=== PATIENT | male | born 1945 | race Caucasian/White ===

== ENCOUNTER 2024-06-24 00:29 | Day surgery (SDC) | payer MEDICARE, SELFPAY ==
[2024-05-20 10:46] VITALS: BMI 26.6
--- NOTE | 2024-06-12 10:34 | SUR.PREOP ---
Pt called this am to cancel his procedure on 06/13 due to provider availability. Pt rescheduled to 06/24 at 1130.
--- NOTE | 2024-06-16 11:46 | PC.NURSE ---
PT CALLED FOR PREOP ADMISSION TESTING, PT DENIES ANY NEW OR DIFFERENT MEDICAL HISTORY THAN WHAT WAS PROVIDER ON LAST CALL, PT UPDATED ON NEW PROCEDURE DATE AND TIME, STATES UNDERSTANDING, AND DENIES ANY QUESTIONS OR CONCERNS.
[2024-06-24] VITALS (7 sets, daily range): BP systolic 74–169; BP diastolic 46–88; PULSE 85–106; RESP 16–22; TEMP 36.3; O2SAT 95–100; BMI 26.2
[2024-06-24] MEDS: LACTATED RINGERS 1,000 ML 150 ML IV CONT (10:22)
--- NOTE | 2024-06-24 10:30 | PM.IMHP ---
H&P: HPI History of Present Illness Date/Time: 06/24/24 10:30 Chief Complaint: positive Cologuard Narrative: the patient has recently found to be Cologuard positive. He has had 2 previous negative Cologuard tests. The patient is asymptomatic from a GI standpoint and there is no family history colorectal cancer. Review of Systems Review of Systems: All systems reviewed & are unremarkable except as noted in HPI and below [facility] Social History Social History Spiritual care concerns: No Meds Home Medications and Allergies Home Medications ?Medication ?Instructions ?Recorded ?Confirmed ?Type tamsulosin 0.4 mg capsule 0.4 mg PO DAILY 05/20/24 06/24/24 History Allergies Allergy/AdvReac Type Severity Reaction Status Date / Time No Known Allergies Allergy Verified 06/24/24 10:13 Vital Signs Vital Signs - 24 hr 06/24/24 10:14 Temperature 97.3 F L Pulse Rate 104 H Respiratory Rate 16 Blood Pressure 169/88 H Pulse Oximetry 100 Oxygen Delivery Room Air Exam Const: General: cooperative and healthy appearing Resp: Effort & Inspection: normal respiratory effort and able to speak in complete sentences Auscultation: clear to auscultation bilaterally Cardio: Rate: regular rate Rhythm: regular rhythm GI: Inspection: normal to inspection GI Palp: No No hepatosplenomegaly present Auscultation: normal bowel sounds Rectal Exam: deferred Skin: General skin exam: normal color Psych: Appearance: grossly normal Mental Status: mental status grossly normal Assessment and Plan Assessment and plan (1) Positive colorectal cancer screening using Cologuard test: Code(s): R19.5 - Other fecal abnormalities Status: Acute Assessment and Plan: The patient is deemed a good candidate for the procedure. Consent signed. Will proceed.
[2024-06-24] MEDS: MIDAZOLAM HCL (*CRX) 2 MG/2 ML VIAL IV PUSH (10:44)
--- NOTE | 2024-06-24 10:45 | P.PNAN_ITS ---
Anes - Initial Pre Proc Eval Procedure: Operation Date: 06/24/24 11:30 Proposed Procedures p Colonoscopy - Jacoby Drake MD Date/Time: 06/24/24 10:45 Surgeon: Jacoby Drake MD Pre Op Diagnosis: Fecal Abnormalities Patient Data Age: 79 Gender: M Height: 1.75 m Weight: 80.6 kg Last Vital Signs Temp 36.3 C L 06/24/24 10:14 Pulse 104 H 06/24/24 10:14 Resp 16 06/24/24 10:14 BP 169/88 H 06/24/24 10:14 Pulse Ox 100 06/24/24 10:14 O2 Del Method Room Air 06/24/24 10:14 Allergies Allergy/AdvReac Type Severity Reaction Status Date / Time No Known Allergies Allergy Verified 06/24/24 10:13 Home Medications ?Medication ?Instructions ?Recorded ?Confirmed ?Type tamsulosin 0.4 mg capsule 0.4 mg PO DAILY 05/20/24 06/24/24 History Patient hx anesthesia problems: none Family hx anesthesia problems: none Results Review: All pre-operative results and documents have been reviewed as part of the pre- operative evaluation. [facility] Past Medical History Medical History (Updated 06/24/24 @ 10:45 by Brad Sutherland MD) Overweight Surgical History Surgical History H/O colonoscopy Social History Social History Spiritual care concerns: No Anes - Eval Final PreProcedure Day of Procedure 06/24/24 10:45 Patient weight: overweight Heart: regular rate and rhythm Lungs: clear to auscultation Airway: Mallampati scale class II Neurological: alert and oriented Last oral intake: >/= 8 hours ASA classification: II Emergent: no Anesthetic plan: proceed Anesthesia type and monitoring: general GIVS and standard monitoring Results Review: All pre-operative results and documents have been reviewed as part of the pre- operative evaluation. Informed Consent: The patient's anesthetic plan and its attendant risks and benefits were discussed with the patient/family/POA. Questions were solicited and answers provided to the satisfaction of the patient/family/POA.
--- OUTSIDE RECORDS SUMMARY | 2024-06-30 04:53 | XMS_ITS | Data Portability ---
Author Organization [facility] [employer], Main Office Address [address] [place] [id number] Care Team Providers Care Mannequin Mounter Name Role Phone KODY BRUNNER Primary Care Provider [phone] Assessment Encounter Date Assessment Date Assessment LastModified by Organization Details LastModified Time 09/08/2022 09/08/2022 Medicare annual Wellness concluded dyslipidemia discussed BPH discussed blood work ordered follow-up 6 months low-fat diet [email or web address] Not available 09/08/2022 21:01:49 03/09/2023 03/09/2023 Continue current therapy flu shot follow-up 6 months Not available 03/10/2023 14:18:26 Plan of Treatment Reminders Order Date Submit Date Provider Last Modified By Organization Details Last Modified Time Details Appointments None recorded . Lab CBC w/ auto diff 023 09/09/[address] (Lab), [address] [place], [address], 3 15:24:50 lipid panel, serum 023 09/09/[address] (Lab), [address] [place], [address], 3 15:24:50 CMP, serum or plasma 023 09/09/[address] (Lab), [address] [place], [address], 3 15:24:50 lipid panel, serum 023 03/09/20 23 [facility] (Lab), [address] [place], [address], 3 14:59:18 CMP, serum or plasma 023 03/09/20 23 [facility] (Lab), [address] [place], [address], 3 14:59:34 PSA, serum or plasma 023 03/09/[email or web address] [place] [address] (Lab), [address] [place], [address], 4 09:38:55 Referral None recorded . Procedures None recorded . Surgeries None recorded . Imaging None recorded . Medication Orders None recorded . Patient TargetsNo targets recorded. Patient Instructions Encounter Date Encounter Id Patient Instructions Last Modified By Organization Details Last Modified Time 09/08/2022 [id number] dementia rating scale-2* Not available 09/08/2022 15:24:50 depression screening* [email or web address] Not available 09/08/2022 15:24:50 alcohol misuse* [email or web address] Not available 09/08/2022 15:24:50 multi-dimensiona l health assessment questionnaire* [email or web address] Not available 09/08/2022 15:24:50 Personalized a [facility] Plan and Screening Recommendations Advance Directives - Do you have one? You have indicated that you are capable of preparing your advance care directive Advance Directives - Do we have your advance directive on file in your health record? Primary Prevention/Interven tion (prevents or decreases the chance of common diseases from occurring) Smoking Risk: Non Smoker Alcohol Misuse Screening: Negative Weight: Appropriate Physical activity: Appropriate physical activity Nutrition: Good Fall Risk (screened today): Low Vaccines Pneumococcal: Ordered Recommended today Recommended today, but you have declined No further needed Influenza: Chronic Disease Risks Stroke: Low Risk Intermediate Risk Heart Attack: Low risk Intermediate Risk Clogging of the Arteries: Low risk Intermediate Risk Diabetes: Low Risk I have no recommendations Secondary Prevention/Interven tion (detects treatable diseases before they may cause symptoms, disability, or ) Prostate Cancer Screening: Colon Cancer Screening: Colonoscopy Fecal Occult Blood Cologuard (DNA stool test) Date Screening Last Performed: Cologuard negative 11/19/20 Eye Disease Screening: Ordered Recommended today Dementia Risk: Low I have no recommendations Depression Screening: Negative Not available 09/08/2022 11:42:34 Reason for Referral None Reported. Results Created Date Observation Date Name Description Value Unit Range Abnormal Flag Note LastModifiedBy Organization Detail LastModifiedTime 11/22/19 22 11/21/2021 PSA SCREE N PSA medicare screen 2.89 NG/mL 0.00-4 .00 Not Available [facility] (Lab) [address] [place], [address], 11/21/2021 13:28:23 11/22/19 22 11/21/2021 LIPID PANEL cholesterol 191 mg/dL 140-19 9 NIH DEMARUCS NSUS RECOM MENDA TION FOR HARIS STERO L: ADULT CHILD LOW RISK: <200 <170 BORDE RLINE : <200- 239 ----- HIGH RISK: >240 >200 Not Available [facility] (Lab) [address] [place], [address], 11/21/2021 13:14:45 11/22/19 22 11/21/2021 LIPID PANEL triglyceride s 103 mg/dL 0-150 NIH DEMARCUS NSUS REPOR T RECOM MENDA TION FOR TRIGL YCERI REMEDIOS: ADULT CHILD LOW RISK: <150 ----- BODER LINE: 150-1 99 ----- HIGH RISK: >200 ----- Not Available [facility] (Lab) [address] [place], [address], 11/21/2021 13:14:45 11/22/19 22 11/21/2021 LIPID PANEL HDL cholesterol 56 mg/dL 40- Not Available [facility] (Lab) [address] [place], [address], 11/21/2021 13:14:45 11/22/19 22 11/21/2021 LIPID PANEL LDL cholesterol, calculated 114 mg/dL 0-130 NIH DEMARCUS NSUS REPOR T RECOM MENDA TIONS FOR LDL: ADULT CHILD LOW RISK <130 <110 (OPTI MAL LDL) <100 ----- BORDE RLINE : 130-1 59 ----- HIGH RISK: >160 >130 A TRIGL YCERI DE RESUL T >400 INVAL IDATE S THE CALCU LATIO N FOR LDL FRACT IONAT ION - THE LDL RESUL T WILL NOT BE REPOR KULDEEP. Not Available [facility] (Lab) [address] [place], [address], 11/21/2021 13:14:45 11/22/19 22 11/21/2021 COMPR EHENS CHRIS METAB OLIC PANEL sodium 142 mmol/ L 137-14 5 Not Available [facility] (Lab) [address] [place], [address], 11/21/2021 13:14:40 11/22/19 22 11/21/2021 COMPR EHENS CHRIS METAB OLIC PANEL potassium 4.1 mmol/ L 3.5-5. 1 Not Available [facility] (Lab) [address] [place], [address], 11/21/2021 13:14:40 11/22/19 22 11/21/2021 COMPR EHENS CHRIS METAB OLIC PANEL chloride 109 mmol/ L 98-107 high Not Available [facility] (Lab) [address] [place], [address], 11/21/2021 13:14:40 11/22/19 22 11/21/2021 COMPR EHENS CHRIS METAB OLIC PANEL carbon dioxide 23 mmol/ L 22-30 Not Available [facility] (Lab) [address] [place], [address], 11/21/2021 13:14:40 11/22/19 22 11/21/2021 COMPR EHENS CHRIS METAB OLIC PANEL anion gap 14.1 mmol/ L 14-22 Not Available [facility] (Lab) [address] [place], [address], 11/21/2021 13:14:40 11/22/19 22 11/21/2021 COMPR EHENS CHRIS METAB OLIC PANEL glucose 94 mg/dL 70-99 Not Available [facility] (Lab) [address] [place], [address], 11/21/2021 13:14:40 11/22/19 22 11/21/2021 COMPR EHENS CHRIS METAB OLIC PANEL BUN 12 mg/dL 8-19 Not Available [facility] (Lab) [address] [place], [address], 11/21/2021 13:14:40 11/22/19 22 11/21/2021 COMPR EHENS CHRIS METAB OLIC PANEL creatinine 1.44 mg/dL 0.66-1 .25 high Not Available [facility] (Lab) [address] [place], [address], 11/21/2021 13:14:40 11/22/19 22 11/21/2021 COMPR EHENS CHRIS METAB OLIC PANEL GFR 48 Refer ence Range : [place] ge GFR Healt hy Adult : >60 mL/mi n/1.7 3 m2 Chron ic Kidne y Disea se: 15-60 mL/mi n/1.7 3 m2 Kidne y Failu re: <15/m L/min /1.73 m2 www.n iddk. nih.g ov The MDRD study equat ion has not been valid ated in child eliza <18 years of age; pregn ant women ; the elder ly >85 years of age; or in some racia l or ethni c subgr oups, such as Hispa nics. Outsi de the valid ated elisa eters , estim ated GFR is less accur ate, requi ring clini jannie judgm ent on a case- by-ca se basis . Clini jannie inter preta tion for other races and ages must be made by the clini marianna. The MDRD study equat ion has not been valid ated for the evalu ation of serum creat inine relat ed to nutri barbara l statu s or medic ation usage . For perso ns <18 years of age, a pedia tric GFR calcu lator is avail able on the [facility] websi te: [email or web address] :[email or web address] han/kizzy pederson s/kdo qi/gf r_cal culat or Not Available [facility] (Lab) [address] [place], [address], 11/21/2021 13:14:40 11/22/19 22 11/21/2021 COMPR EHENS CHRIS METAB OLIC PANEL alkaline phosphatase 87 U/L 38-126 Not Available [facility] (Lab) [address] [place], [address], 11/21/2021 13:14:40 11/22/19 22 11/21/2021 COMPR EHENS CHRIS METAB OLIC PANEL alanine aminotransfe rase 23 U/L 0-50 Not Available [facility] (Lab) [address] [place], [address], 11/21/2021 13:14:40 11/22/19 22 11/21/2021 COMPR EHENS CHRIS METAB OLIC PANEL aspartate aminotransfe rase 44 U/L 15-46 Not Available [facility] (Lab) [address] [place], [address], 11/21/2021 13:14:40 11/22/19 22 11/21/2021 COMPR EHENS CHRIS METAB OLIC PANEL bilirubin, total 1.30 mg/dL 0.20-1 .30 Not Available [facility] (Lab) [address] [place], [address], 11/21/2021 13:14:40 11/22/19 22 11/21/2021 COMPR EHENS CHRIS METAB OLIC PANEL calcium 9.0 mg/dL 8.4-10 .2 Not Available [facility] (Lab) [address] [place], [address], 11/21/2021 13:14:40 11/22/19 22 11/21/2021 COMPR EHENS CHRIS METAB OLIC PANEL total protein 6.7 g/dL 6.3-8. 2 Not Available [facility] (Lab) [address] [facility] [place], [address], 11/21/2021 13:14:40 11/22/19 22 11/21/2021 COMPR EHENS CHRIS METAB OLIC PANEL albumin 4.1 g/dL 3.0-4. 4 Not Available [facility] (Lab) [address] [place], [address], 11/21/2021 13:14:40 11/22/19 22 11/21/2021 COMPR EHENS CHRIS METAB OLIC PANEL globulin 2.6 g/dL 2.6-4. 2 Not Available [facility] (Lab) [address] [place], [address], 11/21/2021 13:14:40 11/22/19 22 11/21/2021 COMPR EHENS CHRIS METAB OLIC PANEL A/G ratio 1.6 ratio 1.0-2. 0 Not Available [facility] (Lab) [address] [place], [address], 11/21/2021 13:14:40 03/10/20 22 03/10/2022 COMPR EHENS CHRIS METAB OLIC PANEL sodium 138 mmol/ L 137-14 5 Not Available [facility] (Lab) [address] [place], [address], 03/10/2022 15:55:43 03/10/20 22 03/10/2022 COMPR EHENS CHRIS METAB OLIC PANEL potassium 4.3 mmol/ L 3.5-5. 1 Not Available [facility] (Lab) [address] [place], [address], 03/10/2022 15:55:43 03/10/20 22 03/10/2022 COMPR EHENS CHRIS METAB OLIC PANEL chloride 106 mmol/ L 98-107 Not Available [facility] (Lab) [address] [place], [address], 03/10/2022 15:55:43 03/10/20 22 03/10/2022 COMPR EHENS CHRIS METAB OLIC PANEL carbon dioxide 26 mmol/ L 22-30 Not Available [facility] (Lab) [address] [place], [address], 03/10/2022 15:55:43 03/10/20 22 03/10/2022 COMPR EHENS CHRIS METAB OLIC PANEL anion gap 10.3 mmol/ L 14-22 low Not Available [facility] (Lab) [address] [place], [address], 03/10/2022 15:55:43 03/10/20 22 03/10/2022 COMPR EHENS CHRIS METAB OLIC PANEL glucose 95 mg/dL 70-99 Not Available [facility] (Lab) [address] [place], [address], 03/10/2022 15:55:43 03/10/20 22 03/10/2022 COMPR EHENS CHRIS METAB OLIC PANEL BUN 15 mg/dL 8-19 Not Available [facility] (Lab) [address] [place], [address], 03/10/2022 15:55:43 03/10/20 22 03/10/2022 COMPR EHENS CHRIS METAB OLIC PANEL creatinine 1.19 mg/dL 0.66-1 .25 Not Available [facility] (Lab) [address] [place], [address], 03/10/2022 15:55:43 03/10/20 22 03/10/2022 COMPR EHENS CHRIS METAB OLIC PANEL GFR 60 Refer ence Range : [place] ge GFR Healt hy Adult : >60 mL/mi n/1.7 3 m2 Chron ic Kidne y Disea se: 15-60 mL/mi n/1.7 3 m2 Kidne y Failu re: <15/m L/min /1.73 m2 www.n iddk. nih.g ov The MDRD study equat ion has not been valid ated in child eliza <18 years of age; pregn ant women ; the elder ly >85 years of age; or in some racia l or ethni c subgr oups, such as Hispa nics. Outsi de the valid ated elisa eters , estim ated GFR is less accur ate, requi ring clini jannie judgm ent on a case- by-ca se basis . Clini jannie inter preta tion for other races and ages must be made by the clini marianna. The MDRD study equat ion has not been valid ated for the evalu ation of serum creat inine relat ed to nutri barbara l statu s or medic ation usage . For perso ns <18 years of age, a pedia tric GFR calcu lator is avail able on the [facility] websi te: https :[email or web address] lara.rudy rg/pr ofess ional s/kdo qi/gf r_cal culat or Not Available [facility] (Lab) [address] [place], [address], 03/10/2022 15:55:43 03/10/20 22 03/10/2022 COMPR EHENS CHRIS METAB OLIC PANEL alkaline phosphatase 97 U/L 38-126 Not Available [facility] (Lab) [address] [place], [address], 03/10/2022 15:55:43 03/10/20 22 03/10/2022 COMPR EHENS CHRIS METAB OLIC PANEL alanine aminotransfe rase 19 U/L 0-50 Not Available [facility] (Lab) [address] [place], [address], 03/10/2022 15:55:43 03/10/20 22 03/10/2022 COMPR EHENS CHRIS METAB OLIC PANEL aspartate aminotransfe rase 33 U/L 15-46 Not Available [facility] (Lab) [address] [place], [address], 03/10/2022 15:55:43 03/10/2003/10/2022 COMPR EHENS CHRIS METAB OLIC PANEL bilirubin, total 1.00 mg/dL 0.20-1 .30 Not Available [facility] (Lab) [address] [place], [address], 03/10/2022 15:55:43 03/10/20 22 03/10/2022 COMPR EHENS CHRIS METAB OLIC PANEL calcium 9.2 mg/dL 8.4-10 .2 Not Available [facility] (Lab) [address] [place], [address], 03/10/2022 15:55:43 03/10/20 22 03/10/2022 COMPR EHENS CHRIS METAB OLIC PANEL total protein 7.1 g/dL 6.3-8. 2 Not Available [facility] (Lab) [address] [place], [address], 03/10/2022 15:55:43 03/10/20 22 03/10/2022 COMPR EHENS CHRIS METAB OLIC PANEL albumin 4.3 g/dL 3.0-4. 4 Not Available [facility] (Lab) [address] [place], [address], 03/10/2022 15:55:43 03/10/20 22 03/10/2022 COMPR EHENS CHRIS METAB OLIC PANEL globulin 2.8 g/dL 2.6-4. 2 Not Available [facility] (Lab) [address] [place], [address], 03/10/2022 15:55:43 03/10/20 22 03/10/2022 COMPR EHENS CHRIS METAB OLIC PANEL A/G ratio 1.5 ratio 1.0-2. 0 Not Available [facility] (Lab) [address] [place], [address], 03/10/2022 15:55:43 03/10/20 22 03/10/2022 LIPID PANEL cholesterol 189 mg/dL 140-19 9 NIH DEMARCUS NSUS RECOM MENDA TION FOR HARIS STERO L: ADULT CHILD LOW RISK: <200 <170 BORDE RLINE : <200- 239 ----- HIGH RISK: >240 >200 Not Available [facility] (Lab) [address] [place], [address], 03/10/2022 15:55:37 03/10/20 22 03/10/2022 LIPID PANEL triglyceride s 129 mg/dL 0-150 NIH DEMARCUS NSUS REPOR T RECOM MENDA TION FOR TRIGL YCERI REMEDIOS: ADULT CHILD LOW RISK: <150 ----- BODER LINE: 150-1 99 ----- HIGH RISK: >200 ----- Not Available [facility] (Lab) [address] [place], [address], 03/10/2022 15:55:37 03/10/20 22 03/10/2022 LIPID PANEL HDL cholesterol 45 mg/dL 40- Not Available [facility] (Lab) [address] [place], [address], 03/10/2022 15:55:37 03/10/20 22 03/10/2022 LIPID PANEL LDL cholesterol, calculated 118 mg/dL 0-130 NIH DEMARCUS NSUS REPOR T RECOM MENDA TIONS FOR LDL: ADULT CHILD LOW RISK <130 <110 (OPTI MAL LDL) <100 ----- BORDE RLINE : 130-1 59 ----- HIGH RISK: >160 >130 A TRIGL YCERI DE RESUL T >400 INVAL IDATE S THE CALCU LATIO N FOR LDL FRACT IONAT ION - THE LDL RESUL T WILL NOT BE REPOR KULDEEP. Not Available [facility] (Lab) [address] [place], [address], 03/10/2022 15:55:37 03/10/20 22 03/10/2022 CBC/C OMPLE TE BLD COUNT W/DIF F white blood cells 11.1 x10'3 /uL 4.2-10 .8 high Not Available [facility] (Lab) [address] [place], [address], 03/10/2022 14:31:25 03/10/20 22 03/10/2022 CBC/C OMPLE TE BLD COUNT W/DIF F red blood cells 4.52 x10'6 /uL 4.10-5 .80 Not Available [facility] (Lab) [address] [place], [address], 03/10/2022 14:31:25 03/10/20 22 03/10/2022 CBC/C OMPLE TE BLD COUNT W/DIF F hemoglobin 14.1 g/dL 13.2-1 7.0 Not Available [facility] (Lab) [address] [place], [address], 03/10/2022 14:31:25 03/10/20 22 03/10/2022 CBC/C OMPLE TE BLD COUNT W/DIF F hematocrit 42.1 % 39.3-5 0.0 Not Available [facility] (Lab) [address] [place], [address], 03/10/2022 14:31:25 03/10/20 22 03/10/2022 CBC/C OMPLE TE BLD COUNT W/DIF F mean red cell volume 93.1 fL 80.0-9 7.0 Not Available [facility] (Lab) [address] [facility] [place], [address], 03/10/2022 14:31:25 03/10/20 22 03/10/2022 CBC/C OMPLE TE BLD COUNT W/DIF F mean red cell hemoglobin 31.2 pg 27.0-3 3.0 Not Available [facility] (Lab) [address] [place], [address], 03/10/2022 14:31:25 03/10/20 22 03/10/2022 CBC/C OMPLE TE BLD COUNT W/DIF F mean RBC HGB concentratio n 33.5 g/dL 31.0-3 6.0 Not Available [facility] (Lab) [address] [place], [address], 03/10/2022 14:31:25 03/10/20 22 03/10/2022 CBC/C OMPLE TE BLD COUNT W/DIF F red cell distribution width 12.9 % 11.8-1 5.5 Not Available [facility] (Lab) [address] [place], [address], 03/10/2022 14:31:25 03/10/20 22 03/10/2022 CBC/C OMPLE TE BLD COUNT W/DIF F platelets 245 x10'3 /uL 150-40 0 Not Available [facility] (Lab) [address] [place], [address], 03/10/2022 14:31:25 03/10/20 22 03/10/2022 CBC/C OMPLE TE BLD COUNT W/DIF F mean platelet volume 10.5 fL 9.0-12 .4 Not Available [facility] (Lab) [address] [place], [address], 03/10/2022 14:31:25 03/10/20 22 03/10/2022 CBC/C OMPLE TE BLD COUNT W/DIF F neutrophils 79.8 % 39.0-7 2.0 high Not Available [facility] (Lab) [address] [place], [address], 03/10/2022 14:31:25 03/10/20 22 03/10/2022 CBC/C OMPLE TE BLD COUNT W/DIF F lymphocytes 13.8 % 16.0-4 7.0 low Not Available [facility] (Lab) [address] [place], [address], 03/10/2022 14:31:25 03/10/20 22 03/10/2022 CBC/C OMPLE TE BLD COUNT W/DIF F monocytes 4.9 % 5.0-12 .0 low Not Available [facility] (Lab) [address] [place], [address], 03/10/2022 14:31:25 03/10/20 22 03/10/2022 CBC/C OMPLE TE BLD COUNT W/DIF F eosinophils 0.7 % 1.0-7. 0 low Not Available [facility] (Lab) [address] [place], [address], 03/10/2022 14:31:25 03/10/20 22 03/10/2022 CBC/C OMPLE TE BLD COUNT W/DIF F basophils 0.4 % 0.0-2. 0 Not Available [facility] (Lab) [address] [place], [address], 03/10/2022 14:31:25 03/10/20 22 03/10/2022 CBC/C OMPLE TE BLD COUNT W/DIF F immature granulocytes 0.4 % 0.00-0 .50 Not Available [facility] (Lab) [address] [place], [address], 03/10/2022 14:31:25 03/10/20 22 03/10/2022 CBC/C OMPLE TE BLD COUNT W/DIF F neutrophils, absolute count 8.83 x10'3 /uL 1.5-8. 0 high Not Available [facility] (Lab) [address] [place], [address], 03/10/2022 14:31:25 03/10/20 22 03/10/2022 CBC/C OMPLE TE BLD COUNT W/DIF F lymphocytes, absolute count 1.53 x10'3 /uL 1.07-3 .43 Not Available [facility] (Lab) [address] [place], [address], 03/10/2022 14:31:25 03/10/20 22 03/10/2022 CBC/C OMPLE TE BLD COUNT W/DIF F monocytes, absolute count 0.54 x10'3 /uL 0.29-0 .99 Not Available [facility] (Lab) [address] [place], [address], 03/10/2022 14:31:25 03/10/20 22 03/10/2022 CBC/C OMPLE TE BLD COUNT W/DIF F eosinophils, absolute count 0.08 x10'3 /uL 0.02-0 .53 Not Available [facility] (Lab) [address] [place], [address], 03/10/2022 14:31:25 03/10/20 22 03/10/2022 CBC/C OMPLE TE BLD COUNT W/DIF F basophils, absolute count 0.04 x10'3 /uL 0.01-0 .08 Not Available [facility] (Lab) [address] [place], [address], 03/10/2022 14:31:25 03/10/20 22 03/10/2022 CBC/C OMPLE TE BLD COUNT W/DIF F immature granulocytes ,absolute 0.04 x10'3 /uL 0.00-0 .05 Not Available [facility] (Lab) [address] [place], [address], 03/10/2022 14:31:25 03/10/20 22 03/10/2022 CBC/C OMPLE TE BLD COUNT W/DIF F nucleated red blood cells 0.0 % -0 Not Available [facility] (Lab) [address] [place], [address], 03/10/2022 14:31:25 03/10/20 22 03/10/2022 CBC/C OMPLE TE BLD COUNT W/DIF F NRBC# 0.00 x10'3 /uL Not Available [facility] (Lab) [address] [place], [address], 03/10/2022 14:31:25 09/09/1909/08/2022 CBC/C OMPLE TE BLD COUNT W/DIF F white blood cells 10.6 x10'3 /uL 4.2-10 .8 Not Available [facility] (Lab) [address] [place], [address], 09/08/2022 13:17:24 09/09/19 23 09/08/2022 CBC/C OMPLE TE BLD COUNT W/DIF F red blood cells 4.56 x10'6 /uL 4.10-5 .80 Not Available [facility] (Lab) [address] [facility] [place], [address], 09/08/2022 13:17:24 09/09/19 23 09/08/2022 CBC/C OMPLE TE BLD COUNT W/DIF F hemoglobin 14.2 g/dL 13.2-1 7.0 Not Available [facility] (Lab) [address] [place], [address], 09/08/2022 13:17:24 09/09/1909/08/2022 CBC/C OMPLE TE BLD COUNT W/DIF F hematocrit 41.0 % 39.3-5 0.0 Not Available [facility] (Lab) [address] [place], [address], 09/08/2022 13:17:24 09/09/1909/08/2022 CBC/C OMPLE TE BLD COUNT W/DIF F mean red cell volume 89.9 fL 80.0-9 7.0 Not Available [facility] (Lab) [address] [place], [address], 09/08/2022 13:17:24 09/09/1909/08/2022 CBC/C OMPLE TE BLD COUNT W/DIF F mean red cell hemoglobin 31.1 pg 27.0-3 3.0 Not Available [facility] (Lab) [address] [place], [address], 09/08/2022 13:17:24 09/09/19 23 09/08/2022 CBC/C OMPLE TE BLD COUNT W/DIF F mean RBC HGB concentratio n 34.6 g/dL 31.0-3 6.0 Not Available [facility] (Lab) [address] [place], [address], 09/08/2022 13:17:24 09/09/1909/08/2022 CBC/C OMPLE TE BLD COUNT W/DIF F red cell distribution width 12.8 % 11.8-1 5.5 Not Available [facility] (Lab) [address] [place], [address], 09/08/2022 13:17:24 09/09/19 23 09/08/2022 CBC/C OMPLE TE BLD COUNT W/DIF F platelets 261 x10'3 /uL 150-40 0 Not Available [facility] (Lab) [address] [place], [address], 09/08/2022 13:17:24 09/09/1909/08/2022 CBC/C OMPLE TE BLD COUNT W/DIF F mean platelet volume 10.0 fL 9.0-12 .4 Not Available [facility] (Lab) [address] [place], [address], 09/08/2022 13:17:24 09/09/1909/08/2022 CBC/C OMPLE TE BLD COUNT W/DIF F neutrophils 76.0 % 39.0-7 2.0 high Not Available [facility] (Lab) [address] [place], [address], 09/08/2022 13:17:24 09/09/1909/08/2022 CBC/C OMPLE TE BLD COUNT W/DIF F lymphocytes 17.7 % 16.0-4 7.0 Not Available [facility] (Lab) [address] [place], [address], 09/08/2022 13:17:24 09/09/1909/08/2022 CBC/C OMPLE TE BLD COUNT W/DIF F monocytes 4.8 % 5.0-12 .0 low Not Available [facility] (Lab) [address] [place], [address], 09/08/2022 13:17:24 09/09/1909/08/2022 CBC/C OMPLE TE BLD COUNT W/DIF F eosinophils 0.6 % 1.0-7. 0 low Not Available [facility] (Lab) [address] [place], [address], 09/08/2022 13:17:24 09/09/1909/08/2022 CBC/C OMPLE TE BLD COUNT W/DIF F basophils 0.5 % 0.0-2. 0 Not Available [facility] (Lab) [address] [place], [address], 09/08/2022 13:17:24 09/09/1909/08/2022 CBC/C OMPLE TE BLD COUNT W/DIF F immature granulocytes 0.4 % 0.00-0 .50 Not Available [facility] (Lab) [address] [place], [address], 09/08/2022 13:17:24 09/09/1909/08/2022 CBC/C OMPLE TE BLD COUNT W/DIF F neutrophils, absolute count 8.09 x10'3 /uL 1.5-8. 0 high Not Available [facility] (Lab) [address] [place], [address], 09/08/2022 13:17:24 09/09/19 23 09/08/2022 CBC/C OMPLE TE BLD COUNT W/DIF F lymphocytes, absolute count 1.88 x10'3 /uL 1.07-3 .43 Not Available [facility] (Lab) [address] [place], [address], 09/08/2022 13:17:24 09/09/19 23 09/08/2022 CBC/C OMPLE TE BLD COUNT W/DIF F monocytes, absolute count 0.51 x10'3 /uL 0.29-0 .99 Not Available [facility] (Lab) [address] [place], [address], 09/08/2022 13:17:24 09/09/1909/08/2022 CBC/C OMPLE TE BLD COUNT W/DIF F eosinophils, absolute count 0.06 x10'3 /uL 0.02-0 .53 Not Available [facility] (Lab) [address] [place], [address], 09/08/2022 13:17:24 09/09/1909/08/2022 CBC/C OMPLE TE BLD COUNT W/DIF F basophils, absolute count 0.05 x10'3 /uL 0.01-0 .08 Not Available [facility] (Lab) [address] [place], [address], 09/08/2022 13:17:24 09/09/1909/08/2022 CBC/C OMPLE TE BLD COUNT W/DIF F immature granulocytes ,absolute 0.04 x10'3 /uL 0.00-0 .05 Not Available [facility] (Lab) [address] [place], [address], 09/08/2022 13:17:24 09/09/1909/08/2022 CBC/C OMPLE TE BLD COUNT W/DIF F nucleated red blood cells 0.0 % -0 Not Available [facility] (Lab) [address] [place], [address], 09/08/2022 13:17:24 09/09/19 23 09/08/2022 CBC/C OMPLE TE BLD COUNT W/DIF F NRBC# 0.00 x10'3 /uL Not Available [facility] (Lab) [address] [place], [address], 09/08/2022 13:17:24 09/09/19 23 09/08/2022 LIPID PANEL cholesterol 190 mg/dL 140-19 9 [facility] NSUS RECOM MENDA TION FOR HARIS STERO L: ADULT CHILD LOW RISK: <200 <170 BORDE RLINE : <200- 239 ----- HIGH RISK: >240 >200 Not Available [facility] (Lab) [address] [place], [address], 09/08/2022 15:21:47 09/09/19 23 09/08/2022 LIPID PANEL triglyceride s 107 mg/dL 0-150 [facility] NSUS REPOR T RECOM MENDA TION FOR TRIGL YCERI REMEDIOS: ADULT CHILD LOW RISK: <150 ----- BODER LINE: 150-1 99 ----- HIGH RISK: >200 ----- Not Available [facility] (Lab) [address] [place], [address], 09/08/2022 15:21:47 09/09/19 23 09/08/2022 LIPID PANEL HDL cholesterol 51 mg/dL 40- Not Available [facility] (Lab) [address] [place], [address], 09/08/2022 15:21:47 09/09/1909/08/2022 LIPID PANEL LDL cholesterol, calculated 118 mg/dL 0-130 [facility] NSUS REPOR T RECOM MENDA TIONS FOR LDL: ADULT CHILD LOW RISK <130 <110 (OPTI MAL LDL) <100 ----- BORDE RLINE : 130-1 59 ----- HIGH RISK: >160 >130 A TRIGL YCERI DE RESUL T >400 INVAL IDATE S THE CALCU LATIO N FOR LDL FRACT IONAT ION - THE LDL RESUL T WILL NOT BE REPOR KULDEEP. Not Available [facility] (Lab) [address] [place], [address], 09/08/2022 15:21:47 09/09/19 23 09/08/2022 COMPR EHENS CHRIS METAB OLIC PANEL sodium 140 mmol/ L 137-14 5 Not Available [facility] (Lab) [address] [place], [address], 09/08/2022 15:22:04 09/09/19 23 09/08/2022 COMPR EHENS CHRIS METAB OLIC PANEL potassium 4.2 mmol/ L 3.5-5. 1 Not Available [facility] (Lab) [address] [place], [address], 09/08/2022 15:22:04 09/09/19 23 09/08/2022 COMPR EHENS CHRIS METAB OLIC PANEL chloride 107 mmol/ L 98-107 Not Available [facility] (Lab) [address] [place], [address], 09/08/2022 15:22:04 09/09/19 23 09/08/2022 COMPR EHENS CHRIS METAB OLIC PANEL carbon dioxide 24 mmol/ L 22-30 Not Available [facility] (Lab) [address] [place], [address], 09/08/2022 15:22:04 09/09/19 23 09/08/2022 COMPR EHENS CHRIS METAB OLIC PANEL anion gap 13.2 mmol/ L 14-22 low Not Available [facility] (Lab) [address] [place], [address], 09/08/2022 15:22:04 09/09/19 23 09/08/2022 COMPR EHENS CHRIS METAB OLIC PANEL glucose 82 mg/dL 70-99 Not Available [facility] (Lab) [address] [place], [address], 09/08/2022 15:22:04 09/09/19 23 09/08/2022 COMPR EHENS CHRIS METAB OLIC PANEL BUN 15 mg/dL 8-19 Not Available [facility] (Lab) [address] [place], [address], 09/08/2022 15:22:04 09/09/19 23 09/08/2022 COMPR EHENS CHRIS METAB OLIC PANEL creatinine 1.33 mg/dL 0.66-1 .25 high Not Available [facility] (Lab) [address] [place], [address], 09/08/2022 15:22:04 09/09/19 23 09/08/2022 COMPR EHENS CHRIS METAB OLIC PANEL GFR 52 Refer ence Range : [place] ge GFR Healt hy Adult : >60 mL/mi n/1.7 3 m2 Chron ic Kidne y Disea se: 15-60 mL/mi n/1.7 3 m2 Kidne y Failu re: <15/m L/min /1.73 m2 www.n iddk. nih.g ov The MDRD study equat ion has not been valid ated in child eliza <18 years of age; pregn ant women ; the elder ly >85 years of age; or in some racia l or ethni c subgr oups, such as [facility] nics. Outsi de the valid ated elisa eters , estim ated GFR is less accur ate, requi ring clini jannie judgm ent on a case- by-ca se basis . Clini jannie inter preta tion for other races and ages must be made by the clini marianna. The MDRD study equat ion has not been valid ated for the evalu ation of serum creat inine relat ed to nutri barbara l statu s or medic ation usage . For perso ns <18 years of age, a pedia tric GFR calcu lator is avail able on the [facility] websi te: [email or web address] :[email or web address] rg/pr ofess ional s/kdo qi/gf r_cal culat or Not Available [facility] (Lab) [address] [place], [address], 09/08/2022 15:22:04 09/09/19 23 09/08/2022 COMPR EHENS CHRIS METAB OLIC PANEL alkaline phosphatase 85 U/L 38-126 Not Available [facility] (Lab) [address] [place], [address], 09/08/2022 15:22:04 09/09/19 23 09/08/2022 COMPR EHENS CHRIS METAB OLIC PANEL alanine aminotransfe rase 23 U/L 0-50 Not Available [facility] (Lab) [address] [place], [address], 09/08/2022 15:22:04 09/09/19 23 09/08/2022 COMPR EHENS CHRIS METAB OLIC PANEL aspartate aminotransfe rase 35 U/L 15-46 Not Available [facility] (Lab) [address] [place], [address], 09/08/2022 15:22:04 09/09/19 23 09/08/2022 COMPR EHENS CHRIS METAB OLIC PANEL bilirubin, total 1.10 mg/dL 0.20-1 .30 Not Available [facility] (Lab) [address] [place], [address], 09/08/2022 15:22:04 09/09/19 23 09/08/2022 COMPR EHENS CHRIS METAB OLIC PANEL calcium 9.1 mg/dL 8.4-10 .2 Not Available [facility] (Lab) [address] [place], [address], 09/08/2022 15:22:04 09/09/19 23 09/08/2022 COMPR EHENS CHRIS METAB OLIC PANEL total protein 6.9 g/dL 6.3-8. 2 Not Available [facility] (Lab) [address] [place], [address], 09/08/2022 15:22:04 09/09/19 23 09/08/2022 COMPR EHENS CHRIS METAB OLIC PANEL albumin 4.2 g/dL 3.0-4. 4 Not Available [facility] (Lab) [address] [place], [address], 09/08/2022 15:22:04 09/09/19 23 09/08/2022 COMPR EHENS CHRIS METAB OLIC PANEL globulin 2.7 g/dL 2.6-4. 2 Not Available [facility] (Lab) [address] [place], [address], 09/08/2022 15:22:04 09/09/19 23 09/08/2022 COMPR EHENS CHRIS METAB OLIC PANEL A/G ratio 1.6 ratio 1.0-2. 0 Not Available [facility] (Lab) [address] [place], [address], 09/08/2022 15:22:04 11/25/19 23 11/24/2022 PSA, TOTAL PSA, total 3.91 NG/mL 0.00-4 .00 Not Available [facility] (Lab) [address] [place], [address], 11/24/2022 16:32:27 03/09/20 23 03/09/2023 LIPID PANEL cholesterol 194 mg/dL 140-19 9 [facility] NSUS RECOM MENDA TION FOR HARIS STERO L: ADULT CHILD LOW RISK: <200 <170 BORDE RLINE : <200- 239 ----- HIGH RISK: >240 >200 Not Available [facility] (Lab) [address] [place], [address], 03/09/2023 14:59:18 03/09/20 23 03/09/2023 LIPID PANEL triglyceride s 104 mg/dL 0-150 [facility] NSUS REPOR T RECOM MENDA TION FOR TRIGL YCERI REMEDIOS: ADULT CHILD LOW RISK: <150 ----- BODER LINE: 150-1 99 ----- HIGH RISK: >200 ----- Not Available [facility] (Lab) [address] [place], [address], 03/09/2023 14:59:18 03/09/2003/09/2023 LIPID PANEL HDL cholesterol 50 mg/dL 40- Not Available [facility] (Lab) [address] [place], [address], 03/09/2023 14:59:18 03/09/2003/09/2023 LIPID PANEL LDL cholesterol, calculated 123 mg/dL 0-130 [facility] NSUS REPOR T RECOM MENDA TIONS FOR LDL: ADULT CHILD LOW RISK <130 <110 (OPTI MAL LDL) <100 ----- ERIC RLINE : 130-1 59 ----- HIGH RISK: >160 >130 A TRIGL YCERI DE RESUL T >400 INVAL IDATE S THE CALCU LATIO N FOR LDL FRACT IONAT ION - THE LDL RESUL T WILL NOT BE REPOR KULDEEP. Not Available [facility] (Lab) [address] [place], [address], 03/09/2023 14:59:18 03/09/2003/09/2023 COMPR EHENS CHRIS METAB OLIC PANEL sodium 141 mmol/ L 137-14 5 Not Available [facility] (Lab) [address] [place], [address], 03/09/2023 14:59:34 03/09/2003/09/2023 COMPR EHENS CHRIS METAB OLIC PANEL potassium 4.1 mmol/ L 3.5-5. 1 Not Available [facility] (Lab) [address] [place], [address], 03/09/2023 14:59:34 03/09/20 23 03/09/2023 COMPR EHENS CHRIS METAB OLIC PANEL chloride 108 mmol/ L 98-107 high Not Available [facility] (Lab) [address] [place], [address], 03/09/2023 14:59:34 03/09/2003/09/2023 COMPR EHENS CHRIS METAB OLIC PANEL carbon dioxide 25 mmol/ L 22-30 Not Available [facility] (Lab) [address] [place], [address], 03/09/2023 14:59:34 03/09/2003/09/2023 COMPR EHENS CHRIS METAB OLIC PANEL anion gap 12.1 mmol/ L 14-22 low Not Available [facility] (Lab) [address] [place], [address], 03/09/2023 14:59:34 03/09/2003/09/2023 COMPR EHENS CHRIS METAB OLIC PANEL glucose 86 mg/dL 70-99 Not Available [facility] (Lab) [address] [place], [address], 03/09/2023 14:59:34 03/09/2003/09/2023 COMPR EHENS CHRIS METAB OLIC PANEL BUN 15 mg/dL 8-19 Not Available [facility] (Lab) [address] [place], [address], 03/09/2023 14:59:34 03/09/2003/09/2023 COMPR EHENS CHRIS METAB OLIC PANEL creatinine 1.42 mg/dL 0.66-1 .25 high Not Available [facility] (Lab) [address] [place], [address], 03/09/2023 14:59:34 03/09/2003/09/2023 COMPR EHENS CHRIS METAB OLIC PANEL GFR 48 Refer ence Range : [place] ge GFR Healt hy Adult : >60 mL/mi n/1.7 3 m2 Chron ic Kidne y Disea se: 15-60 mL/mi n/1.7 3 m2 Kidne y Failu re: <15/m L/min /1.73 m2 www.n iddk. nih.g ov The MDRD study equat ion has not been valid ated in child eliza <18 years of age; pregn ant women ; the elder ly >85 years of age; or in some racia l or ethni c subgr oups, such as Hispa nics. Outsi de the valid ated elisa eters , estim ated GFR is less accur ate, requi ring clini jannie judgm ent on a case- by-ca se basis . Clini jannie inter preta tion for other races and ages must be made by the clini marianna. The MDRD study equat ion has not been valid ated for the evalu ation of serum creat inine relat ed to nutri barbara l statu s or medic ation usage . For perso ns <18 years of age, a pedia tric GFR calcu lator is avail able on the [facility] websi te: [email or web address] :[email or web address] rg/pr ofess ional s/kdo qi/gf r_cal culat or Not Available [facility] (Lab) [address] [place], [address], 03/09/2023 14:59:34 03/09/2003/09/2023 COMPR EHENS CHRIS METAB OLIC PANEL alkaline phosphatase 84 U/L 38-126 Not Available [facility] (Lab) [address] [place], [address], 03/09/2023 14:59:34 03/09/20 23 03/09/2023 COMPR EHENS CHRIS METAB OLIC PANEL alanine aminotransfe rase 23 U/L 0-50 Not Available [facility] (Lab) [address] [place], [address], 03/09/2023 14:59:34 03/09/20 23 03/09/2023 COMPR EHENS CHRIS METAB OLIC PANEL aspartate aminotransfe rase 35 U/L 15-46 Not Available [facility] (Lab) [address] [place], [address], 03/09/2023 14:59:34 03/09/2003/09/2023 COMPR EHENS CHRIS METAB OLIC PANEL bilirubin, total 1.00 mg/dL 0.20-1 .30 Not Available [facility] (Lab) [address] [place], [address], 03/09/2023 14:59:34 03/09/2003/09/2023 COMPR EHENS CHRIS METAB OLIC PANEL calcium 9.2 mg/dL 8.4-10 .2 Not Available [facility] (Lab) [address] [place], [address], 03/09/2023 14:59:34 03/09/20 23 03/09/2023 COMPR EHENS CHRIS METAB OLIC PANEL total protein 6.7 g/dL 6.3-8. 2 Not Available [facility] (Lab) [address] [place], [address], 03/09/2023 14:59:34 03/09/2003/09/2023 COMPR EHENS CHRIS METAB OLIC PANEL albumin 4.2 g/dL 3.0-4. 4 Not Available [facility] (Lab) [address] [place], [address], 03/09/2023 14:59:34 03/09/2003/09/2023 COMPR EHENS CHRIS METAB OLIC PANEL globulin 2.5 g/dL 2.6-4. 2 low Not Available [facility] (Lab) [address] [place], [address], 03/09/2023 14:59:34 03/09/20 23 03/09/2023 COMPR EHENS CHRIS METAB OLIC PANEL A/G ratio 1.7 ratio 1.0-2. 0 Not Available [facility] (Lab) [address] [place], [address], 03/09/2023 14:59:34 03/09/20 23 03/12/2023 PSA (LAB ORP) PSA 3.1 NG/mL 0.0-3. 6 [facility] Immun ochem ilumi nomet roel Metho dolog y (ICMA ) . Value s obtai farhat with diffe rent assay metho ds or kits canno t be used inter mojica eably . Resul ts canno t be inter prete d as absol [place] evide nce of the prese ile [facility] . Perfo rmed at: [facility] [place] [address] [facility] , [place] [address] Lab Direc tor: Socorro cazares MD, Phone : [phone] Not Available [facility] ([facility]) [address] [place], [address], 03/12/2023 14:20:46 Result Notes None recorded. Problems Name Problem SNOMED Code Status Onset Date Resolution Date Notes Provider Name and Address Organization Details Recorded Time Hypercholeste rolemia 90795936 Active 2020 Not Available [facility] 3 22:34:05 Nocturia 442083641 Active Not Available [facility] 3 22:34:05 Benign prostatic hyperplasia 482939024 Active 2019 Not Available [facility] 3 22:34:05 Osteoarthriti s 781416425 Active Not Available [facility] 3 22:34:05 Cough 32138467 Active 2021 Not Available [facility] 3 22:34:05 Upper respiratory infection 68736729 Active 2021 Not Available [facility] 3 22:34:05 Acute upper respiratory infection 91076224 Active 2021 Not Available [facility] 3 22:34:05 Problem Notes None recorded. Procedures Surgical History Date Name Laterality Status Provider Name and Address Organization Details Recorded Time 3 Medicare Wellness CPT Code, subsequent completed Lila Resendiz RN [place] [facility] 09/08/2022 11:36:39 Imaging Results None recorded. Procedure Notes None recorded. Medical Equipment None Reported. Allergies No known drug allergies Medications Name Sig Start Date Stop Date Status Note LastModified by Organization Details LastModified Time amoxicillin 500 mg capsule Take 1 capsule 3 times a day by oral route for 6 days. active Not Available Not Available No t Available doxycycline hyclate 100 mg capsule Take 1 capsule twice a day by oral route for 7 days. 09/08 completed Not Available Not Available Not Available ibuprofen 800 mg tablet 03/31 completed Not Available Not Available Not Available benzonatate 200 mg capsule Take 1 capsule 3 times a day by oral route as needed. 09/08 completed Not Available Not Available Not Available prednisone 20 mg tablet active Not Available Not Available Not Available ciprofloxac in 500 mg tablet TAKE 1 TABLET BY MOUTH TWICE DAILY FOR 7 DAYS 11/09 completed Not Available Not Available Not Available sulfamethox azole 800 mg-trimetho prim 160 mg tablet Take 1 tablet every 12 hours by oral route. 10/09 completed Not Available Not Available Not Available tamsulosin 0.4 mg capsule TAKE 1 CAPSULE BY MOUTH EVERYDAY AT BEDTIME 2022 active Not Available Not Available Not Avai lable Aspir-81 mg tablet,victorina yed release Take 1 tablet every day by oral route. 09/09 completed Not Available Not Available Not Available methylpredn isolone 4 mg tablets in a dose pack active Not Available Not Available Not Available cefdinir 300 mg capsule Take 1 capsule every 12 hours by oral route for 7 days. 09/08 completed Not Available Not Available Not Available [facility] 180 mg tablet Take 1 tablet every day by oral route for 6 days. 03/31 completed Not Available Not Available Not Available Vitals Date Recorded Body mass index (BMI) Body height Heart rate Body temperature Body weight Systolic blood pressure Diastolic blood pressure Provider Name and Address Organization Details Last Updated DateTime 1 25.9 kg/m2 180.34 cm 72 /min 97.4 [degF] 21526.1 8 g 130 mm[Hg] 60 mm[Hg] Not Available [facility] 3 04:52:23 Date Recorded Body mass index (BMI) Body height Oxygen saturation Oxygen saturation in Arterial blood by Pulse oximetry Heart rate Body temperature Body weight Systolic blood pressure Diastolic blood pressure Provider Name and Address Organization Details Last Updated DateTime 2 26.4 kg/m2 180.34 cm 98 % 98 % 76 /min 97 [degF] 43421.9 6 g 142 mm[Hg] 72 mm[Hg] Not Available [facility] 3 04:52:23 Date Recorded Body mass index (BMI) Body height Heart rate Body temperature Body weight Systolic blood pressure Diastolic blood pressure Provider Name and Address Organization Details Last Updated DateTime 2 25.4 kg/m2 180.34 cm 80 /min 97.9 [degF] 89050.8 1 g 120 mm[Hg] 76 mm[Hg] Not Available [facility] 3 04:52:24 Date Recorded Body height Body mass index (BMI) Body weight Body temperature Heart rate Oxygen saturation Oxygen saturation in Arterial blood by Pulse oximetry Systolic blood pressure Diastolic blood pressure Provider Name and Address Organization Details Last Updated DateTime 3 180.34 cm 25.7 kg/m2 70572 g 98 [degF] 75 /min 99 % 99 % 128 mm[Hg] 76 mm[Hg] Rajni Inman RN [facility] Active Circle [employer] 3 11:29:36 Date Recorded Body height Body mass index (BMI) Body weight Body temperature Heart rate Systolic blood pressure Diastolic blood pressure Provider Name and Address Organization Details Last Updated DateTime 3 180.34 cm 25.9 kg/m2 39269.1 8 g 98.7 [degF] 81 /min 140 mm[Hg] 84 mm[Hg] REGAN Vizcarra IA [employer] 3 10:58:02 Social History Question Answer Notes LastModified by Organization Details LastModified Time Tobacco Smoking Status Former Smoker quit 1979 Not Available [facility] 08/06/2022 04:43:24 Do You Have An Advance Directive? No Patient Declined Informatio n. Information not available 09/08/2022 What Is Your Level Of Alcohol Consumption? Occasional MIGRATION.300 [id number] Information not available 08/06/2022 Are You Blind Or Do You Have Difficulty Seeing? No [id number] Information not available 08/06/2022 How Much Tobacco Do You Chew? None MIGRATION.030 [id number] Information not available 08/06/2022 In The 14 Days Before Symptom Onset, Have You Had Close Contact With A Laboratory-confi rmed COVID-19 While That Case Was Ill? No MIGRATION.030 [id number] Information not available 08/06/2022 In The 14 Days Before Symptom Onset, Have You Had Close Contact With A Person Who Is Under Investigation For COVID-19 While That Person Was Ill? No MIGRATION.030 [id number] Information not available 08/06/2022 Are You Deaf Or Do You Have Serious Difficulty Hearing? No MIGRATION.030 [id number] Information not available 08/06/2022 What Type Of Diet Are You Following? REGULAR MIGRATION.030 [id number] Information not available 08/06/2022 Which Illicit Or Recreational Drugs Have You Used? None MIGRATION.030 617892 Information not available 08/06/2022 Do You Or Have You Ever Used E-cigarettes Or Vape? Never Used Electronic Cigarettes MIGRATION.030 636575 Information not available 08/06/2022 What Is The Highest Grade Or Level Of School You Have Completed Or The Highest Degree You Have Received? [id number] MIGRATION.300 [id number] Information not available 08/06/2022 Have There Been Any Changes To Your Family Or Social Situation? No MIGRATION.030 [id number] Information not available 08/06/2022 What Is The Fluoride Status Of Your Home? Unknown MIGRATION.030 [id number] Information not available 08/06/2022 When Did You Quit Smoking? 17+yearssincelast cigarette MIGRATION.030 711485 Information not available 08/06/2022 Are There Any Guns Present In Your Home? Yes MIGRATION.030 [id number] Information not available 08/06/2022 Do You Use Insect Repellent Routinely? No MIGRATION.030 934547 Information not available 08/06/2022 Where Do You Live? [facility] MIGRATION.030 [id number] Information not available 08/06/2022 Presence Of Domestic Violence No Information not available 09/08/2022 Guns Present In The Home? Yes Information not available 09/08/2022 Are You Able To Care For Yourself? Yes Information not available 09/08/2022 Are You Blind Or Do Yo Have Difficulty Seeing? No Information not available 09/08/2022 Are You Deaf Or Do You Have Serious Difficulty Hearing? No Information not available 09/08/2022 General Stress Level? Low Information not available 09/08/2022 Live Alone Of With Others? With Others [email or web address] Information not available 09/08/2022 Do You Have A Medical Power Of Indoor Sports [employer] Manager? No MIGRATION.0301 [id number] Information not available 08/06/2022 What Was The Date Of Your Most Recent Tobacco Screening? 03/09/2023 [email or web address] Information not available 03/09/2023 Have You Ever Been Counseled For Unhealthy Alcohol Use? No MIGRATION.0301 [id number] Information not available 08/06/2022 Do You Have Any Pets? Yes MIGRATION.0301 [id number] Information not available 08/06/2022 What Is Your Relationship Status? MIGRATION.0301 [id number] Information not available 08/06/2022 Do You Use Your Seat Belt Or Car Seat Routinely? Yes MIGRATION.0301 190973 Information not available 08/06/2022 Do You Have Smoke And Carbon Monoxide Detectors In Your Home? Yes MIGRATION.0301 709354 Information not available 08/06/2022 Are You Passively Exposed To Smoke? Yes MIGRATION.0301 688113 Information not available 08/06/2022 Do You Or Have You Ever Used Smokeless Tobacco? Never Used Smokeless Tobacco MIGRATION.0301 [id number] Information not available 08/06/2022 Are There Any Smokers In Your House? Yes Smokes MIGRATION.0301 079748 Information not available 08/06/2022 How Much Tobacco Do You Smoke? No MIGRATION.0301 [id number] Information not available 08/06/2022 What Types Of Sporting Activities Do You Participate In? None MIGRATION.0301 [id number] Information not available 08/06/2022 Do You Feel Stressed (tense, Restless, Nervous, Or Anxious, Or Unable To Sleep At Night)? [id number] MIGRATION.0301 [id number] Information not available 08/06/2022 Do You Use Any Illicit Or Recreational Drugs? No MIGRATION.0301 [id number] Information not available 08/06/2022 Do You Use Sunscreen Routinely? No Information not available 09/08/2022 Has Tobacco Cessation Counseling Been Provided? No MIGRATION.0301 [id number] Information not available 08/06/2022 Have You Recently Traveled Abroad? No MIGRATION.0301 199985 Information not available 08/06/2022 Do You Have Any Dietary Restrictions? No MIGRATION.0301 [id number] Information not available 08/06/2022 Do You Or Have You Ever Used Any Other Forms Of Tobacco Or Nicotine? No MIGRATION.0301 [id number] Information not available 08/06/2022 Sex: Male Functional Status Question Answer Note LastModified by Organizat [employer] Details LastModified Time Do you have difficulty walking or climbing stairs? No MIGRATION.[id number] 026 Information not available 08/06/2022 Do you have transportation difficulties? No MIGRATION.[id number] 026 Information not available 08/06/2022 Are you able to walk? YESWOREST MIGRATION.[id number] 026 Information not available 08/06/2022 Do you have difficulty doing errands alone? No MIGRATION.[id number] 026 Information not available 08/06/2022 Are you able to care for yourself? Yes MIGRATION.[id number] 026 Information not available 08/06/2022 Do you have difficulty dressing or bathing? No MIGRATION.[id number] 026 Information not available 08/06/2022 What is your exercise level? Moderate MIGRATION.[id number] 026 Information not available 08/06/2022 Mental Status Question Answer Note LastModified by Organ[employer] Details LastModified Time Do you have difficulty concentrating, remembering or making decisions? No MIGRATION.[id number] Information not available 08/06/2022 Family History Relationship Description Onset Age of this Age Resolved Age Notes LastModified by Organization Details LastModified Time Father Malignant tumor of pharynx MIGRATION.270 [id number] Not available 08/06/2022 04:44:05 Medical History Condition Response NERVE DISEASE N BLINDNESS N RHEUMATIC FEVER N KIDNEY STONES N BLADDER PROBLEMS N MRSA N OTHER # 1 N POLIO N LUNG DISEASE/DISORDER N RADIATION / CHEMOTHERAPY N COPD N Other # 2 N BLOOD DISEASES N EAR OR HEARING PROBLEMS N MUMPS N BOWEL PROBLEMS N DEPRESSION (INCLUDING POST ) N STROKE/TIA N ULCERS N BENIGN PROSTATIC HYPERPLASIA Y MEASLES N MYOCARDIAL INFARCTION N OBESITY N GERD/NAUSEA N ANEURYSM N URINARY/BLADDER/KIDNEY PROBLEMS Y CORONARY ARTERY DISEASE (CAD) N ADDICTION CONCERNS N Impotence N ENDOMETRIOSIS N USE OF BLOOD THINNERS N SKIN PROBLEMS N GASTROINTESTINAL DISORDER N PERIPHERAL VASCULAR DISEASE N MUSCLE,JOINT OR BONE PROBLEMS N GASTROINTESTINAL BLEEDING N BLOOD CLOTS N ASTHMA N CATARACTS N ERECTILE DYSFUNCTION N VARICOSITIES N GI PROBLEMS N Low Testosterone N INFERTILITY N AIDS/HIV N CHEMOTHERAPY / RADIATION N LIVER DISEASE N MALE HYPOGONADISM N HYPERTENSION N Deficiency N TOURETTE'S N ANXIETY DISORDER N BLOOD TRANSFUSION N ANEMIA/BLOOD DISORDER N CHRONIC EAR INFECTIONS N BRONCHITIS N TUBERCULOSIS N GLAUCOMA N FOOT PROBLEM N DIVERTICULITIS N SLEEP APNEA N CHICKENPOX N INFECTIOUS DISEASE N PROSTATE N HEART ARRHYTHMIA N INSOMNIA N HIGH CHOLESTEROL / HYPERLIPIDEMIA Y EYE PROBLEMS N HYPERTHYROIDISM N EDEMA N CHRONIC PAIN SYNDROME N HYPOTHYROIDISM N CONSTIPATION N CAROTID BLOCKAGE N BACK / NECK PROBLEMS N HAVE YOU BEEN HOSPITALIZED OR SEEN IN [facility] IN THE PAST YEAR ? N ATHEROSCLEROSIS N BREAST PROBLEMS N DIALYSIS N ECZEMA N OSTEOPOROSIS N ARTHRITIS Y NO SIGNIFICANT PAST MEDICAL HISTORY N APPENDICITIS N DIABETES, TYPE N BAD TEETH N ENT N HEARTBURN / REFLUX N AUTISM SPECTRUM DISORDER (ASD) N HEPATITIS / LIVER DISEASE N GOUT N SLEEP DISORDER N ALZHEIMER'S DISEASE N Brain Problems N DEMENTIA N HERPES N SEIZURES/EPILEPSY N HEADACHES/MIGRAINES N VASCULAR DISEASE N PACEMAKER N Blood Disorder N DIZZINESS N HEART DISEASE/HEART PROBLEMS N KIDNEY DISEASE N MULTIPLE SCLEROSIS N CANCER: SPECIFY N CARDIAC ARRHYTHMIA N ATRIAL FIBRILLATION N [place] N PULMONARY EMBOLISM N AUTOIMMUNE DISEASE N Immunizations Vaccine Type Date Status Note Provider Nam e and Address Organization Details Recorded Time Influenza, high-dose, quadrivalent, PF 3 completed Kody Brunner MD [address] [place] [address], [id number], [facility] [employer] 03/10/2023 14:18:41 COVID-19, mRNA, LNP-S, PF, 30 mcg/0.3 mL dose 1 completed Not Available [facility] 03/12/2023 22:34:06 COVID-19, mRNA, LNP-S, PF, 30 mcg/0.3 mL dose 1 completed Not Available [facility] 03/12/2023 22:34:05 COVID-19, mRNA, LNP-S, PF, 30 mcg/0.3 mL dose 2 completed Not Available [facility] 03/12/2023 22:34:06 COVID-19, mRNA, LNP-S, PF, 30 mcg/0.3 mL dose 1 completed Not Available [facility] 03/12/2023 22:34:06 COVID-19, mRNA, LNP-S, PF, 30 mcg/0.3 mL dose 2 completed Not Available [facility] 03/12/2023 22:34:06 Influenza, high-dose, quadrivalent, PF 1 completed Not Available [facility] 03/12/2023 22:34:05 Influenza, high-dose, quadrivalent, PF 2 completed Not Available [facility] 03/12/2023 22:34:05 pneumococcal polysaccharide PPV23 1 completed Not Available [facility] 03/12/2023 22:34:06 Influenza, high-dose, trivalent, PF 9 completed Not Available [facility] 03/12/2023 22:34:06 Influenza, high-dose, trivalent, PF 8 completed Not Available [facility] 03/12/2023 22:34:06 Pneumococcal conjugate PCV 13 8 completed Not Available [facility] 03/12/2023 22:34:06 Influenza, high-dose, trivalent, PF 7 completed Not Available [facility] 03/12/2023 22:34:06 Influenza, high-dose, trivalent, PF 6 completed Not Available [facility] 03/12/2023 22:34:06 Influenza, high-dose, trivalent, PF 5 completed Not Available [facility] 03/12/2023 22:34:06 Influenza, split virus, quadrivalent, preservative 4 completed Not Available [facility] 03/12/2023 22:34:05 Influenza, split virus, trivalent, preservative 3 completed Not Available [facility] 03/12/2023 22:34:06 Past Encounters Encounter ID Performer Location Encounter Start Date Encounter Closed Date Diagnosis/Indication Diagnosis SNOMED-CT Code Diagnosis ICD10 Code Diagnosis Note [id number] [facility] Internal Med Ma[address]ik 15 2043 [facility], [address] [address] 11/06/2020 00:00:00 11/06/2020 10:13:45 [id number] [facility] Internal Med [facility] [address] [place] [address] [address]da., [address] [address] 02/12/2021 00:00:00 02/12/2021 21:28:32 [id number] [facility] Internal Med [facility] [address] [place] [address] Brenda., [address] [address] 09/09/2021 00:00:00 09/29/2021 17:27:06 [id number] [facility] Internal Med [facility] [address] [place] [address] 1 03/10/2022 00:00:00 03/10/2022 18:33:35 [id number] Kody Brunner MD [facility] Internal Med [facility] [address] , [address] [address] 09/08/2022 11:11:19 09/08/2022 12:41:25 Adult health examination 835410610 Z00.00 Screening for disorder 929218196 Z13.9 Hypercholesterolemia 136 [address]64 E78.00 Long-term drug therapy 548325476 Z79.899 Benign pro static hyperplasia 484123823 N40.0 [id number] Kody Brunner MD [facility] Internal Med [facility] [address] [place] [address] , [address] [address] 03/09/2023 10:50:45 03/09/2023 11:54:25 Hypercholesterolemia 13052224 E78.00 Benign pro static hyperplasia 461891155 N40.0 Administra tion of influenza vaccine 13926065 Z23 Health Concerns Section Related Observation LastModified by Organization Detai ls LastModified Time None Recorded Concern Status LastModified by Organization Details LastModified Time None Recorded Advance Directives Directive N: Patient declined informat ion. Payers Encounter Date Sequence Insurance Name Policy Number Policy Conley Covered Member ID Conley Member ID Guarantor Name 09/08/2022 1 [place] Pato Maldonado Jr [id number] Pato Maldonado 09/08/2022 2 [employer] OPTIONS (MEDICARE SUPPLEMENT) PLAN N Pato Maldonado [id number] Pato Bernalley 03/09/2023 1 [place] Pato Maldonado Jr [id number] Pato Maldonado 03/09/2023 2 [employer] (MEDICARE SUPPLEMENT) PLAN N Pato Maldonado [id number] Pato Erica Notes Date Note Type Note Provider Name and Address Organization Details Recorded Time 09/08/2022 text/html Hyperlipidemia t moon to watch dietBPH has been doing [employer] annual wellness completed Kody Brunner MD [address], [address], [place], [address], [employer] 09/08/2022 21:02:06 03/09/2023 text/html Hyperlipidemia t moon to watch dietBPH has been doing oka Kody Brunner MD [address], [address], [place], [address], [employer] 03/10/2023 14:18:44
== END 2024-06-24 12:09 | disposition home or self-care (01) ==
PROVIDERS: PCP Internal Medicine; Visit Provider Internal Medicine Gastroenterology
PROC: 0DJD8ZZ Inspection of Lower Intestinal Tract, Via Natural or Artificial Opening Endoscopic (ICD-10-PCS; CPT 45378; principal; 2024-06-24 11:30)
DX: D12.4 Benign neoplasm of descending colon (principal); K64.8 Other hemorrhoids
CPT/HCPCS: 45385; 88305; J2003; J2250; J2371; J2704; J7120

== ENCOUNTER 2024-07-29 12:40 | Outpatient (CLI) | payer MEDICARE, SELFPAY ==
--- NOTE | ~2024-07-29 | US_ITS ---
EXAMINATION: US renal BI DATE: 07/29/2024 13:05 INDICATION: Abnormal findings in specimens from other organs. TECHNIQUE: Multiple ultrasound grayscale images of the kidneys were obtained. COMPARISON: None. FINDINGS: The right kidney measures 10.2 x 4.5 x 3.8 cm. The left kidney measures 11.2 x 4.1 x 5.2 cm. The kidn eys demonstrate normal parenchymal echogenicity. There is no hydronephrosis. The bladder is normal. IMPRESSION: 1. Normal kidneys. No hydronephrosis. Reviewed, dictated and finalized at location A. [facility] [employer]
== END 2024-07-29 12:41 | disposition home or self-care (01) ==
LOC: GOSHIMG 12:41
PROVIDERS: PCP Internal Medicine; Visit Provider Internal Medicine
DX: R89.9 Unspecified abnormal finding in specimens from other organs, systems and tissues (principal)
CPT/HCPCS: 76775